=== PATIENT | female | born 2000 | race Caucasian/White ===

== ENCOUNTER 2019-09-01 21:06 | Emergency (ER) | payer BC ==
[~2019-09-01] VITALS: Ht 152.4 cm; Wt 56.7 kg
--- OUTSIDE RECORDS SUMMARY | 2019-09-01 21:08 | XMS REPORT ---
Author Author [facility] Address Unknown Phone Unavailable Care Team Providers Care Tube Repairer Name Role Phone Jeni MEJIA Unavailable Unavailable Problems This patient has no known problems. Allergies, Adverse Reactions, Alerts This patient has no known allergies or adverse reactions. Medications This patient has no known medications. Results Test Description Test Time Test Comments Text Results Atomic Results Result Comments CHEST 2 VIEWS [place] [address] Patient Name: ANGELA ONTIVEROS MR #: [id number] : 2000 Age/Sex: 17/F Req #: [id number] Adm Physician: Ordered by: IGNACIA MOSCOSO MEAT SMOKER Report #: [id number] Location: ER Room/Bed: Procedure: [id number] DX/CHEST 2 VIEWS Exam Date: 08/12/17 Exam Time: 1710 REPORT STATUS: Signed PROCEDURE: Frontal and lateral views of the chest. COMPARISON: None. INDICATIONS: CHEST PAIN FINDINGS: Lines/tubes: None. Lungs: The lungs are well inflated and clear. There is no evidence of pneumonia or pulmonary edema. Pleura: There is no pleural effusion or pneumothorax. Heart and mediastinum: The heart and the mediastinum are normal. Bones: No acute bony abnormality. IMPRESSION: 1. No acute cardiopulmonary disease. Dictated by: Chelsey Shanks M.D. on 08/12/2017 at 17:48 Electronically approved by: Chelsey Shanks M.D. on 08/12/2017 at 17:48 Dictated By: CHELSEY SHANKS MD 46 Transcribed By: JACIEL on 08/12/171747 COPY TO: IGNACIA MOSCOSO NP
== END 2019-09-01 21:24 | disposition home or self-care (01) ==
LOC: ER 21:06
DX: S30.861A Insect bite (nonvenomous) of abdominal wall, initial encounter (principal); W57.XXXA Bitten or stung by nonvenomous insect and other nonvenomous arthropods, initial encounter; Y92.009 Unspecified place in unspecified non-institutional (private) residence as the place of occurrence of the external cause
CPT/HCPCS: 99282

== ENCOUNTER 2019-11-12 18:25 | Emergency (ER) | payer BC ==
[~2019-11-12] VITALS: Ht 152.4 cm; Wt 56.7 kg
[2019-11-12] MEDS ORDERED: SODIUM CHLORIDE 0.9% 1000ML 1,000 ML IV SCH (18:37)
[2019-11-12] MEDS ORDERED: KETOROLAC TROMETHAMINE 30 MG/ML VIAL IV STA (18:37)
[2019-11-12] MEDS ORDERED: METOCLOPRAMIDE HCL 10 MG/2ML VIAL IV ONE (18:45)
[2019-11-12] MEDS ORDERED: DIPHENHYDRAMINE HCL INJ 50 MG/ML VIAL IV NR (18:45)
[2019-11-12] MEDS ORDERED: KETOROLAC TROMETHAMINE 30 MG/ML VIAL ONE (18:52)
[2019-11-12] MEDS ORDERED: DIPHENHYDRAMINE HCL INJ 50 MG/ML VIAL ONE (18:52)
[2019-11-12] MEDS ORDERED: METOCLOPRAMIDE HCL 10 MG/2ML VIAL ONE (18:52)
[2019-11-12] MEDS ORDERED: SODIUM CHLORIDE 0.9% 1000ML 1,000 ML ONE (18:53)
== END 2019-11-12 19:32 | disposition home or self-care (01) ==
LOC: FSED 18:25
DX: G43.109 Migraine with aura, not intractable, without status migrainosus (principal)
CPT/HCPCS: 81025; 99284; J1200; J1885; J2765; J7030

== ENCOUNTER 2020-01-20 13:24 | Emergency (ER) | payer BC ==
[~2020-01-20] VITALS: Ht 152.4 cm; Wt 53.6 kg
[2020-01-20] MEDS ORDERED: ONDANSETRON HCL INJ 2MG/ML 2ML 2 MG/ML VIAL IV STA (13:40)
[2020-01-20] MEDS ORDERED: SODIUM CHLORIDE 0.9% 1000ML 1,000 ML IV SCH (13:45)
[2020-01-20] MEDS ORDERED: KETOROLAC TROMETHAMINE 30 MG/ML VIAL IV NR (14:00)
[2020-01-20] MEDS ORDERED: DIPHENHYDRAMINE HCL INJ 50 MG/ML VIAL IV ONE (14:15)
[2020-01-20] MEDS ORDERED: DIPHENHYDRAMINE HCL INJ 50 MG/ML VIAL ONE (14:15)
[2020-01-20 15:51] VITALS: BP 117/70
== END 2020-01-20 14:54 | disposition home or self-care (01) ==
LOC: FSED 13:36
DX: G43.019 Migraine without aura, intractable, without status migrainosus (principal)
CPT/HCPCS: 81003; 81025; 96374; 96375; 99283; J1200; J1885; J2405; J7030

== ENCOUNTER 2021-04-12 23:41 | Emergency (ER) | payer BC ==
[~2021-04-12] VITALS: Ht 149.9 cm; Wt 44.5 kg
[2021-04-13] MEDS ORDERED: NEOMYCIN/POLYMYX/BACITR OINT 0.9 GM PKT ONE (01:37)
== END 2021-04-13 01:41 | disposition home or self-care (01) ==
LOC: FSED 04-13
DX: S01.01XA Laceration without foreign body of scalp, initial encounter (principal); W20.8XXA Other cause of strike by thrown, projected or falling object, initial encounter; Y92.007 Garden or yard of unspecified non-institutional (private) residence as the place of occurrence of the external cause; F17.210 Nicotine dependence, cigarettes, uncomplicated
CPT/HCPCS: 99282